=== PATIENT | male | born 1945 | race Caucasian/White ===

== ENCOUNTER → 2017-10-17 | Outpatient (CLI) | payer OTHER ==
[~2017-10-17] MED LIST: B COMPLETE1 EACH PO; BYSTOLIC5 MG PO; FINASTERIDE5 MG PO; MAGNESIUM250 MG PO; OMEGA-31000 M1 PO; PRILOSEC20 MG PO; TERAZOSIN HCL5 MG PO; TRAMADOL HCL50 MG PO; VIAGRA100 MG PO; VITAMIN C1000 MG PO; VITAMIN E400 UNIT PO; ZINC50 M1 PO
== END | disposition home or self-care (01) ==
LOC: CDC 15:51
DX: Z01.810 Encounter for preprocedural cardiovascular examination (principal); H25.11 Age-related nuclear cataract, right eye; I48.91 Unspecified atrial fibrillation; R94.31 Abnormal electrocardiogram [ECG] [EKG]
CPT/HCPCS: 93000